=== PATIENT | male | born 1955 | race Caucasian/White ===

== ENCOUNTER 2025-02-01 11:22 | Emergency (ER) | payer MEDICARE ==
[2025-02-01 12:28] LABS: APPEARANCE,URINE CLEAR (Clear); GLUCOSE,URINE TRACE (Negative); OCCULT BLOOD,URINE TRACE-INTACT (Negative)
[2025-02-01 12:37] LABS: EPITHELIAL CELLS,URINE 0-5 /hpf (0-5)
== END 2025-02-01 12:58 | disposition home or self-care (01) ==
LOC: JD.ED 11:22
DX: N40.1 Benign prostatic hyperplasia with lower urinary tract symptoms (principal); R33.8 Other retention of urine; Z87.760 Personal history of (corrected) congenital diaphragmatic hernia or other congenital diaphragm malformations
CPT/HCPCS: 81001; 99284